=== PATIENT | female | born 1995 | race Caucasian/White ===

== ENCOUNTER 2019-11-19 17:13 | Emergency (ER) | payer OTHER, MEDICAID, SELFPAY ==
[2019-11-19] VITALS (9 sets, daily range): BP systolic 96–112; BP diastolic 64–82; PULSE 71–94; RESP 16–29; O2SAT 94–100
[2019-11-19 17:46] LABS: Add Manual Diff / Slide Review NO; Basophils Absolute Auto 100 /uL (0-100); Basophils Percent Auto 0.6 % (0-2); Eosinophils Absolute Auto 300 /uL (0-450); Eosinophils Percent Auto 3.1 % (2-4); Hematocrit 38.2 % (36-46); Hemoglobin 13.2 g/dL (12.0-16.0); Lymphocytes Absolute Auto 2600 /uL (1100-4500); Lymphocytes Percent Auto 31.5 % (25-40); Mean Corpuscular HGB Conc 34.5 % (30-36); Mean Corpuscular Hemoglobin 32.3 PG (26-34); Mean Corpuscular Volume 93.5 fL (80-100); Monocytes Absolute Auto 600 /uL (0-900); Monocytes Percent Auto 7.6 % (3-14); Neutrophils Absolute Auto 4600 /uL (1500-7000); Neutrophils Percent Auto 57.2 % (50-75); Platelet Count 273 X10^3/uL (150-400); Red Blood Cell Count 4.09 X10^6/uL (4.0-5.2); Red Cell Distribution Width 12.6 % (11.6-14.8); White Blood Cell Count 8.1 X10^3/uL (4.5-11.0)
[2019-11-19 17:55] LABS: HEMOLYSIS < 15 (0-50); Potassium 3.9 mmol/L (3.4-5.1)
[2019-11-19 17:56] LABS: Alanine Aminotransferase 42 IU/L (<35); Albumin 4.3 g/dL (3.5-5.0); Albumin Globulin Ratio 1.4 (1.0-2.8); Alkaline Phosphatase 62 U/L (38-126); Aspartate Aminotransferase 43 IU/L (14-36); BUN Creatinine Ratio 20.3 (6-22); Bilirubin Total 0.7 mg/dL (0.2-1.3); Blood Urea Nitrogen 12 mg/dL (7-17); Calcium 9.1 mg/dL (8.4-10.2); Carbon Dioxide 22 mmol/L (22-32); Chloride 104 mmol/L (98-107); Estimated Glomerular Filt Rate > 60.0 mL/min (>60); Glucose 84 mg/dL (70-100); Sodium 136 mmol/L (137-145); Total Protein 7.3 g/dL (6.3-8.2)
--- NOTE | 2019-11-19 18:00 | DI.RAD.S_ITS ---
PROCEDURE: XR CHEST 2V INDICATIONS: sob, cough TECHNIQUE: 2 views of the chest were acquired. COMPARISON: None. FINDINGS: Surgical changes and devices: None. Lungs and pleura: Lungs are clear. No pleural effusions or pneumothorax. Mediastinum: Mediastinal contours are normal. Heart size is normal. Bones and chest wall: No suspicious bony abnormalities. Soft tissues appear unremarkable. IMPRESSION: Light film technique, no pneumonia found. Dictated by: Rakesh Payne M.D. on 11/19/2019 at 18:43 Approved by: Rakesh Payne M.D. on 11/19/2019 at 18:43
--- NOTE | 2019-11-19 18:01 | DI.US.S_ITS ---
PROCEDURE: US PELVIC COMPLETE INDICATIONS: RECENT D C; PAIN TECHNIQUE: Real-time scanning was performed of the pelvic organs, with image documentation. Additional endovaginal scanning was necessary due to incomplete visualization of the adnexal and endometrial structures by transabdominal scanning. COMPARISON: None. FINDINGS: Transabdominal scanning: Limited scanning through the kidneys shows no hydronephrosis. No pathologic free abdominal or pelvic fluid. Endovaginal scanning: Uterus: Uterus is normal in size at 5.4 x 6.7 x 8.4 cm. The endometrium measures 11.4 mm in combined thickness, heterogeneous, with an IUD in central position. The heterogeneity may reflect blood clot or retained products of conception.. Ovaries: Right and left ovaries normal, no sign of ovarian torsion. IMPRESSION: Possible retained products of conception as cause of heterogeneous material within the endometrial space, versus blood clots. IUD centrally positioned. Dictated by: Rakesh Payne M.D. on 11/19/2019 at 20:32 Approved by: Rakesh Payne M.D. on 11/19/2019 at 20:34
[2019-11-19] MEDS: ALBUTEROL HFA 200 PUFF/18 GM INH (COVID POS/VENT PTS) INH (18:08)
--- NOTE | 2019-11-19 18:26 | ED.SOB ---
HPI - SOB/Dyspnea <RADHA Gan - Last Filed: 11/19/19 21:18> General Chief Complaint: Shortness of Breath/Dyspnea Stated Complaint: shortness of breath, pain Time Seen by Provider: 11/19/19 17:32 Source: patient Mode of arrival: Ambulatory Limitations: no limitations History of Present Illness HPI Narrative: The patient is a 23-year-old female nonsmoker with history of recent D&C for elective termination last who presents with a chief complaint of progressive shortness of breath, dry cough, difficulty breathing since her procedure last . She denies any fevers nausea vomiting or diarrhea. She does complain of worsening pelvic pain and cramping and bleeding. She has not taken anything to feel better. She is concerned about coronavirus. She states that she feels as though her chest is very ?tight. Had difficulty running the day after her elective termination. She denies any dysuria urgency or frequency. Denies any history of respiratory disease such as asthma. Patient has been drinking today per nursing. The patient states she feels as though her hormones are fluctuating a lot, denies any thoughts of hurting herself or anybody Related Data Home Medications Medication Instructions Recorded Confirmed bupropion HCl 75 mg PO DAILY 11/19/19 11/19/19 dextroamphetamine-amphetamine 30 mg PO QAM 11/19/19 11/19/19 naltrexone 50 mg PO DAILY 11/19/19 11/19/19 naproxen 500 mg PO BID 11/19/19 11/19/19 Previous Rx's Medication Instructions Recorded hydroxyzine HCl 50 mg PO TID PRN #10 tab 11/19/19 Allergies Allergy/AdvReac Type Severity Reaction Status Date / Time amoxicillin Allergy Unknown Verified 11/19/19 18:51 Review of Systems <RADHA Gan - Last Filed: 11/19/19 21:18> Review of Systems Narrative: GENERAL: Denies chills, fatigue, malaise, fever, sweats. HEENT: Denies sinus pain, ear pain, sore throat, difficulty swallowing, dizziness. RESPIRATORY: See HPI CARDIOVASCULAR: Denies chest pain, palpitations, orthopnea, edema, GASTROINTESTINAL: Denies nausea, vomiting, abdominal pain, diarrhea, constipation, melena. : See HPI MUSCULOSKELETAL: denies weakness, joint pain, or bony pain SKIN: Denies rash, skin lesions, or other NEUROLOGIC: Denies weakness, headache, numbness, change in speech, confusion, seizures, incoordination. PSYCHIATRIC: No concerning psychosocial issues. 12 point review of systems is negative except for those stated above Patient History <Syeda ANA Benoit- - Last Filed: 11/19/19 21:18> Social History Smoking Status: Never smoker Smoking Status: Never smoker alcohol intake frequency: 0-2 drinks per day Substance Use Type: does not use Exam <Syeda ANA Benoit- - Last Filed: 11/19/19 21:18> Narrative Exam Narrative: GENERAL: This is a well-nourished, well-developed patient, appears uncomfortable HEAD: Atraumatic. Normocephalic. No temporal or scalp tenderness. EYES: Pupils equal round and reactive. Extraocular motions intact. No scleral icterus. No injection or drainage. ENT: Nose without bleeding, purulent drainage or septal hematoma. Throat without erythema, tonsillar hypertrophy or exudate. Uvula midline. Airway patent. NECK: Trachea midline. No JVD or lymphadenopathy. Supple, nontender, no meningeal signs. CARDIOVASCULAR: Regular rate and rhythm RESPIRATORY: Clear to auscultation. Breath sounds equal bilaterally. No wheezes, rales, or rhonchi. Tachypneic. No cough on exam. Speaking full sentences. GASTROINTESTINAL: Abdomen soft, diffuse suprapubic tenderness to palpation, nondistended. No hepato-splenomegaly, or palpable masses. No guarding. Active bowel sounds. EXTREMITIES: No clubbing, cyanosis, or edema. No joint tenderness, effusion, or edema noted. BACK: Nontender without deformity or crepitance. No flank tenderness. NEURO: AOx3. SKIN: No rash or erythema on visible skin Initial Vital Signs Initial Vital Signs: Vital Signs Pulse Rate 94 H 11/19/19 17:15 Respiratory Rate 18 11/19/19 17:15 Blood Pressure 112/82 11/19/19 17:15 Pulse Oximetry 94 11/19/19 17:15 <Barry Munoz DO - Last Filed: 11/19/19 21:22> Initial Vital Signs Initial Vital Signs: Vital Signs Pulse Rate 94 H 11/19/19 17:15 Respiratory Rate 18 11/19/19 17:15 Blood Pressure 112/82 11/19/19 17:15 Pulse Oximetry 94 11/19/19 17:15 Scores <Syeda RADHA Benoit - Last Filed: 11/19/19 21:18> GCS Hung coma scale eye opening: Spontaneous Hung coma scale verbal response: Orientated [place] coma scale motor response: Obey commands Hung coma scale total score: 15 Course <Syeda MccormackJAMES lucioBC - Last Filed: 11/19/19 21:18> Orders Ordered: ED Orders 11/19/19 17:38 Complete Blood Count AUTO DIFF Stat Comprehensive Metabolic Panel Stat Ethanol (ETOH) Stat Lactate (Lactic Acid) Stat Test Serum,Qual Stat 11/19/19 17:42 EKG-12 Lead Stat 11/19/19 18:00 XR chest 2V Stat 11/19/19 18:01 US pelvic complete Stat 11/19/19 19:04 CT angio chest PE protocol Stat Discontinued Medications Albuterol (Ventolin Hfa (Vent/Covid R/O)) 2 puff INH NOW ONE Stop: 11/19/19 18:05 Last Admin: 11/19/19 18:08 Dose: 2 puff Documented by: DIYA Hydroxyzine Pamoate (Vistaril) 50 mg PO NOW ONE Stop: 11/19/19 21:03 Last Admin: 11/19/19 21:05 Dose: 50 mg Documented by: CECIL Sodium Chloride (Normal Saline 0.9%) 1,000 mls @ 1,000 mls/hr IV BOLUS ONE Stop: 11/19/19 20:03 Last Infusion: 11/19/19 20:33 Dose: 1,000 mls/hr Documented by: Admin: 11/19/19 19:32 Dose: 1,000 mls/hr Documented by: EL Reevaluation(s) Reevaluation #1: Discussed with patient desire to do CT angio to evaluate for PE as she presented hypoxic, tachycardic for her, dyspnea. However patient still test positive for given her recent D&C. Discussed that we generally avoid CT scans and people for , though the patient elected to terminate last week. Patient states that she is okay would like to proceed with CT angio as she still feels short of breath. Time: 19:19 Vital Signs Vital signs: Vital Signs - 8 hr 11/19/19 17:15 11/19/19 17:46 11/19/19 17:56 Pulse Rate 94 H 84 87 Respiratory Rate 18 29 H Blood Pressure 112/82 Pulse Oximetry 94 98 99 11/19/19 18:00 11/19/19 18:30 11/19/19 19:00 Pulse Rate 83 92 H 92 H Respiratory Rate 23 24 26 H Blood Pressure Pulse Oximetry 97 98 98 11/19/19 19:30 11/19/19 20:00 11/19/19 21:18 Pulse Rate 86 87 71 Respiratory Rate 23 26 H 16 Blood Pressure 96/64 Pulse Oximetry 100 98 99 <Barry Alexander, DO - Last Filed: 11/19/19 21:22> Orders Ordered: ED Orders 11/19/19 17:38 Complete Blood Count AUTO DIFF Stat Comprehensive Metabolic Panel Stat Ethanol (ETOH) Stat Lactate (Lactic Acid) Stat Test Serum,Qual Stat 11/19/19 17:42 EKG-12 Lead Stat 11/19/19 18:00 XR chest 2V Stat 11/19/19 18:01 US pelvic complete Stat 11/19/19 19:04 CT angio chest PE protocol Stat Discontinued Medications Albuterol (Ventolin Hfa (Vent/Covid R/O)) 2 puff INH NOW ONE Stop: 11/19/19 18:05 Last Admin: 11/19/19 18:08 Dose: 2 puff Documented by: DIYA Hydroxyzine Pamoate (Vistaril) 50 mg PO NOW ONE Stop: 11/19/19 21:03 Last Admin: 11/19/19 21:05 Dose: 50 mg Documented by: CECIL Sodium Chloride (Normal Saline 0.9%) 1,000 mls @ 1,000 mls/hr IV BOLUS ONE Stop: 11/19/19 20:03 Last Infusion: 11/19/19 20:33 Dose: 1,000 mls/hr Documented by: Admin: 11/19/19 19:32 Dose: 1,000 mls/hr Documented by: EL Vital Signs Vital signs: Vital Signs - 8 hr 11/19/19 17:15 11/19/19 17:46 11/19/19 17:56 Pulse Rate 94 H 84 87 Respiratory Rate 18 29 H Blood Pressure 112/82 Pulse Oximetry 94 98 99 11/19/19 18:00 11/19/19 18:30 11/19/19 19:00 Pulse Rate 83 92 H 92 H Respiratory Rate 23 24 26 H Blood Pressure Pulse Oximetry 97 98 98 11/19/19 19:30 11/19/19 20:00 11/19/19 21:18 Pulse Rate 86 87 71 Respiratory Rate 23 26 H 16 Blood Pressure 96/64 Pulse Oximetry 100 98 99 MDM - SOB/Dyspnea <ANA Gan-BC - Last Filed: 11/19/19 21:18> Lab Data Result diagrams: 11/19/19 17:38 11/19/19 17:38 Labs: Lab Results 11/19/19 11/19/19 11/19/19 Range/Units 17:38 17:38 17:38 WBC 8.1 (4.5-11.0) X10^3/uL RBC 4.09 (4.0-5.2) X10^6/uL Hgb 13.2 (12.0-16.0) g/dL Hct 38.2 (36-46) % MCV 93.5 (80-100) fL MCH 32.3 (26-34) PG MCHC 34.5 (30-36) % RDW 12.6 (11.6-14.8) % Plt Count 273 (150-400) X10^3/uL Neut % (Auto) 57.2 (50-75) % Lymph % (Auto) 31.5 (25-40) % [place] % (Auto) 7.6 (3-14) % Eos % (Auto) 3.1 (2-4) % Baso % (Auto) 0.6 (0-2) % Neut # (Auto) 4600 (1591-9908) /uL Lymph # (Auto) 2600 (6221-7854) /uL [place] # (Auto) 600 (0-900) /uL Eos # (Auto) 300 (0-450) /uL Baso # (Auto) 100 (0-100) /uL Sodium 136 L (137-145) mmol/L Potassium 3.9 (3.4-5.1) mmol/L Chloride 104 (98-107) mmol/L Carbon Dioxide 22 (22-32) mmol/L BUN 12 (7-17) mg/dL Creatinine 0.59 (0.52-1.04) mg/dL Estimated GFR > 60.0 (>60) mL/min BUN/Creatinine Ratio 20.3 (6-22) Glucose 84 (70-100) mg/dL Lactate 1.0 (0.7-2.1) mmol/L Calcium 9.1 (8.4-10.2) mg/dL Total Bilirubin 0.7 (0.2-1.3) mg/dL AST 43 H (14-36) IU/L ALT 42 H (<35) IU/L Alkaline Phosphatase 62 (38-126) U/L Total Protein 7.3 (6.3-8.2) g/dL Albumin 4.3 (3.5-5.0) g/dL Globulin 3.0 (1.7-4.1) g/dL Albumin/Globulin Ratio 1.4 (1.0-2.8) Serum , Qual (Negative) Ethyl Alcohol ( - 10) mg/dL COVID-19 PCR (Negative) 11/19/19 11/19/19 11/19/19 Range/Units 17:38 17:38 17:58 WBC (4.5-11.0) X10^3/uL RBC (4.0-5.2) X10^6/uL Hgb (12.0-16.0) g/dL Hct (36-46) % MCV (80-100) fL MCH (26-34) PG MCHC (30-36) % RDW (11.6-14.8) % Plt Count (150-400) X10^3/uL Neut % (Auto) (50-75) % Lymph % (Auto) (25-40) % [place] % (Auto) (3-14) % Eos % (Auto) (2-4) % Baso % (Auto) (0-2) % Neut # (Auto) (2281-6278) /uL Lymph # (Auto) (5233-9521) /uL [place] # (Auto) (0-900) /uL Eos # (Auto) (0-450) /uL Baso # (Auto) (0-100) /uL Sodium (137-145) mmol/L Potassium (3.4-5.1) mmol/L Chloride (98-107) mmol/L Carbon Dioxide (22-32) mmol/L BUN (7-17) mg/dL Creatinine (0.52-1.04) mg/dL Estimated GFR (>60) mL/min BUN/Creatinine Ratio (6-22) Glucose (70-100) mg/dL Lactate (0.7-2.1) mmol/L Calcium (8.4-10.2) mg/dL Total Bilirubin (0.2-1.3) mg/dL AST (14-36) IU/L ALT (<35) IU/L Alkaline Phosphatase (38-126) U/L Total Protein (6.3-8.2) g/dL Albumin (3.5-5.0) g/dL Globulin (1.7-4.1) g/dL Albumin/Globulin Ratio (1.0-2.8) Serum , Qual Positive H (Negative) Ethyl Alcohol 87 H ( - 10) mg/dL COVID-19 PCR Negative (Negative) Point of Care Testing Test Results Positive Urine Dip Bedside Urine Glucose Negative Bedside Urine Bilirubin - Negative Bedside Urine Ketone - Negative Urine Specific Hundred 1.010 Bedside Urine Occult Blood +++ Bedside Urine pH 6.0 Bedside Urine Protein - Negative Bedside Urine Urobilinogen - Negative Bedside Urine Nitrite - Negative Bedside Urine Leukocytes - Negative Esterase Imaging Data Chest x-ray: Radiologist's Impression: [address] [place] [id number] XRay Report Signed Patient: Rae Lobato EMR#: [id number] : 1995Acct:[id number] Age/Sex: 23 / FDate of Service: 11/19/19 Loc: ED Accession Number: [id number] Procedure: XR chest 2V Ordering Provider: Syeda Benoit- PROCEDURE: XR CHEST 2V INDICATIONS: sob, cough TECHNIQUE: 2 views of the chest were acquired. COMPARISON: None. FINDINGS: Surgical changes and devices: None. Lungs and pleura: Lungs are clear. No pleural effusions or pneumothorax. Mediastinum: Mediastinal contours are normal. Heart size is normal. Bones and chest wall: No suspicious bony abnormalities. Soft tissues appear unremarkable. IMPRESSION: Light film technique, no pneumonia found. Dictated by: Rakesh Payne M.D. on 11/19/2019 at 18:43 Approved by: Rakesh Payne M.D. on 11/19/2019 at 18:43 CT scan - chest: Radiologist's Impression: [address] [place] [id number] Scan Report Signed Patient: Rae Lobato EMR#: [id number] : 1995Acct:[id number] Age/Sex: 23 / FDate of Service: 11/19/19 Loc: ED Accession Number: [id number] Procedure: CT angio chest PE protocol [facility] CT [facility]GIO CHEST PE PROTOCOL INDICATIONS: SHORTNESS OF BREATH TECHNIQUE: After the administration of intravenous contrast, 2 mm thick sections acquired from the pulmonary apices to the posterior costophrenic angles. 3-dimensional maximum intensity projection (MIP) coronal and sagittal reformats were then acquired through the thorax. For radiation dose reduction, the following was used: automated exposure control, adjustment of mA and/or kV according to patient size. COMPARISON: [facility], , XR CHEST 2V, 11/19/2019, 18:04. FINDINGS: Image quality: Excellent. Pulmonary arteries: Pulmonary arteries are normal in size, and demonstrate no intraluminal filling defects to suggest central pulmonary embolism. Lungs and pleura: Lungs are clear. No pleural effusions or pneumothorax. Central and peripheral airways are patent. Mediastinum: Heart size is normal, without pericardial effusion. No mediastinal or hilar adenopathy. Thoracic aorta is normal in caliber and enhancement. Esophagus is normal in caliber, without hiatal hernia. Bones and chest wall: No suspicious bony lesions. Ribs and thoracic spine appear intact throughout. Thyroid gland appears normal where well seen . No axillary or supraclavicular adenopathy. Abdomen: Visualized upper abdominal solid organs appear normal in the early arterial phase of enhancement. IMPRESSION: No pulmonary embolus found, no sign of pulmonary edema. Source of current shortness of breath is not found. Dictated by: Rakesh Payne M.D. on 11/19/2019 at 19:53 Approved by: Rakesh Payne M.D. on 11/19/2019 at 19:55 US - OB: Radiologist's Impression: [address] [place] [phone] Ultrasound Report Signed Patient: Rae Lobato EMR#: [id number] : 1995Acct:[id number] Age/Sex: 23 / FDate of Service: 11/19/19 Loc: ED Accession Number: [id number] Procedure: US pelvic complete Ordering Provider: Syeda Benoit PROCEDURE: US PELVIC COMPLETE INDICATIONS: RECENT D C; PAIN TECHNIQUE: Real-time scanning was performed of the pelvic organs, with image documentation. Additional endovaginal scanning was necessary due to incomplete visualization of the adnexal and endometrial structures by transabdominal scanning. COMPARISON: None. FINDINGS: Transabdominal scanning: Limited scanning through the kidneys shows no hydronephrosis. No pathologic free abdominal or pelvic fluid. Endovaginal scanning: Uterus: Uterus is normal in size at 5.4 x 6.7 x 8.4 cm. The endometrium measures 11.4 mm in combined thickness, heterogeneous, with an IUD in central position. The heterogeneity may reflect blood clot or retained products of conception.. Ovaries: Right and left ovaries normal, no sign of ovarian torsion. IMPRESSION: Possible retained products of conception as cause of heterogeneous material within the endometrial space, versus blood clots. IUD centrally positioned. Dictated by: Rakesh Payne M.D. on 11/19/2019 at 20:32 Approved by: Rakesh Payne M.D. on 11/19/2019 at 20:34 ECG Data Attestation: I personally reviewed and interpreted this ECG as follows: Interpretation: Sinus rhythm. Ventricular 85. P.r. interval 142. QRS 76. seen by Dr Alexander GILMORE Narrative Medical decision making narrative: The patient is a 23-year-old female who presents with multiple medical complaints including shortness of breath with exertion, dyspnea, pelvic cramping and increased bleeding after D and C for elective termination at 10 weeks. This was done on . Given the patient's tachypnea, respiratory complaints, we obtained a CT to rule out pulmonary embolism as the patient's heart rate was tachycardic for her. This came back negative. Chest x-ray has no signs of pneumonia. Her lung sounds are clear in overall exam is benign. Given her pelvic complaints, ultrasound was taken which showed slightly thickened endometrium. This was concerning for clot versus possible retained products. Spoke with Dr. peraza, on-call for OBGYN who states that she has not personally concerned about retained products at this point as she is afebrile no leukocytosis, not very thick and me tram. Encouraged follow-up with her or another OBGYN provider. The patient then states she thinks that her complaints might be related to anxiety and requested ?some Valium or something.I offered her hydroxyzine, which she was willing to take. The patient has a primary care provider appointment tomorrow, which I encouraged her to keep. Discussed coming back to the ER for any acute concerns as well as monitoring for fever etcetera. Patient also tested negative for coronavirus today. She has been hemodynamically stable throughout her stay in the emergency department. Patient has no questions or concerns upon discharge and states understanding of return precautions as well as follow-up care. <Barry Munoz, DO - Last Filed: 11/19/19 21:22> Lab Data Labs: Lab Results 11/19/19 11/19/19 11/19/19 Range/Units 17:38 17:38 17:38 WBC 8.1 (4.5-11.0) X10^3/uL RBC 4.09 (4.0-5.2) X10^6/uL Hgb 13.2 (12.0-16.0) g/dL Hct 38.2 (36-46) % MCV 93.5 (80-100) fL MCH 32.3 (26-34) PG MCHC 34.5 (30-36) % RDW 12.6 (11.6-14.8) % Plt Count 273 (150-400) X10^3/uL Neut % (Auto) 57.2 (50-75) % Lymph % (Auto) 31.5 (25-40) % [place] % (Auto) 7.6 (3-14) % Eos % (Auto) 3.1 (2-4) % Baso % (Auto) 0.6 (0-2) % Neut # (Auto) 4600 (1320-9850) /uL Lymph # (Auto) 2600 (7101-8405) /uL [place] # (Auto) 600 (0-900) /uL Eos # (Auto) 300 (0-450) /uL Baso # (Auto) 100 (0-100) /uL Sodium 136 L (137-145) mmol/L Potassium 3.9 (3.4-5.1) mmol/L Chloride 104 (98-107) mmol/L Carbon Dioxide 22 (22-32) mmol/L BUN 12 (7-17) mg/dL Creatinine 0.59 (0.52-1.04) mg/dL Estimated GFR > 60.0 (>60) mL/min BUN/Creatinine Ratio 20.3 (6-22) Glucose 84 (70-100) mg/dL Lactate 1.0 (0.7-2.1) mmol/L Calcium 9.1 (8.4-10.2) mg/dL Total Bilirubin 0.7 (0.2-1.3) mg/dL AST 43 H (14-36) IU/L ALT 42 H (<35) IU/L Alkaline Phosphatase 62 (38-126) U/L Total Protein 7.3 (6.3-8.2) g/dL Albumin 4.3 (3.5-5.0) g/dL Globulin 3.0 (1.7-4.1) g/dL Albumin/Globulin Ratio 1.4 (1.0-2.8) Serum , Qual (Negative) Ethyl Alcohol ( - 10) mg/dL COVID-19 PCR (Negative) 11/19/19 11/19/19 11/19/19 Range/Units 17:38 17:38 17:58 WBC (4.5-11.0) X10^3/uL RBC (4.0-5.2) X10^6/uL Hgb (12.0-16.0) g/dL Hct (36-46) % MCV (80-100) fL MCH (26-34) PG MCHC (30-36) % RDW (11.6-14.8) % Plt Count (150-400) X10^3/uL Neut % (Auto) (50-75) % Lymph % (Auto) (25-40) % [place] % (Auto) (3-14) % Eos % (Auto) (2-4) % Baso % (Auto) (0-2) % Neut # (Auto) (4974-5897) /uL Lymph # (Auto) (4983-8117) /uL [place] # (Auto) (0-900) /uL Eos # (Auto) (0-450) /uL Baso # (Auto) (0-100) /uL Sodium (137-145) mmol/L Potassium (3.4-5.1) mmol/L Chloride (98-107) mmol/L Carbon Dioxide (22-32) mmol/L BUN (7-17) mg/dL Creatinine (0.52-1.04) mg/dL Estimated GFR (>60) mL/min BUN/Creatinine Ratio (6-22) Glucose (70-100) mg/dL Lactate (0.7-2.1) mmol/L Calcium (8.4-10.2) mg/dL Total Bilirubin (0.2-1.3) mg/dL AST (14-36) IU/L ALT (<35) IU/L Alkaline Phosphatase (38-126) U/L Total Protein (6.3-8.2) g/dL Albumin (3.5-5.0) g/dL Globulin (1.7-4.1) g/dL Albumin/Globulin Ratio (1.0-2.8) Serum , Qual Positive H (Negative) Ethyl Alcohol 87 H ( - 10) mg/dL COVID-19 PCR Negative (Negative) Point of Care Testing Test Results Positive Urine Dip Bedside Urine Glucose Negative Bedside Urine Bilirubin - Negative Bedside Urine Ketone - Negative Urine Specific Hundred 1.010 Bedside Urine Occult Blood +++ Bedside Urine pH 6.0 Bedside Urine Protein - Negative Bedside Urine Urobilinogen - Negative Bedside Urine Nitrite - Negative Bedside Urine Leukocytes - Negative Esterase Discharge Plan Departure Patient Disposition: Home Clinical Impression: Shortness of breath, Pelvic cramping Discharge Date/Time: 11/19/19 21:18 Instructions: DI for Abdominal Pain-Adult, DI for Shortness of Breath Activity Restrictions/Additional Instructions: Thank you for trusting us with your care today. Today your chest x-ray shows no signs of pneumonia, your chest CT scan shows no sign of blood clot or abnormality in your lungs, your pelvic ultrasound is relatively within normal limits with procedure you just had I spoke with Dr. peraza, from OBGYN who thinks that you should take some ibuprofen or Motrin to help with the cramping and follow-up with an OBGYN. She is willing to follow up with you if you do not have anybody else. I have included her contact information below. Please monitor for fever as this can be a sign of infection in the uterus. Please rest, push non alcoholic fluids, and follow up with primary care provider. Please come back to the emergency department for any acute concerns. I sent a prescription of hydroxyzine to [facility] in [place]. Do not combine this with Benadryl. Please be aware that it can be sedating. Prescriptions: New hydroxyzine HCl 50 mg tablet 50 mg PO TID PRN (Reason: anxiety) Qty: 10 RF: 0 No Action naltrexone 50 mg tablet 50 mg PO DAILY RF: 0 bupropion HCl 75 mg tablet 75 mg PO DAILY RF: 0 dextroamphetamine-amphetamine 30 mg capsule,extended release 24hr 30 mg PO QAM RF: 0 naproxen 500 mg tablet 500 mg PO BID RF: 0 Referrals: Marily Peraza MD [Physician] - Jessica Lozada MD [Primary Care Provider] - Stand Alone Forms: Work Release Note <Barry Munoz DO - Last Filed: 11/19/19 21:22> [facility]ign [facility] Attestation: Dr Munoz Co-Sign Statement: I was available for consultation during this patient's emergency department visit. This chart is signed by myself for administrative purposes only. I did not have direct contact with this patient during this visit. They were seen independently by the APC.
--- NOTE | 2019-11-19 19:04 | DI.CT.S_ITS ---
PROCEDURE: CT ANGIO CHEST PE PROTOCOL INDICATIONS: SHORTNESS OF BREATH TECHNIQUE: After the administration of intravenous contrast, 2 mm thick sections acquired from the pulmonary apices to the posterior costophrenic angles. 3-dimensional maximum intensity projection (MIP) coronal and sagittal reformats were then acquired through the thorax. For radiation dose reduction, the following was used: automated exposure control, adjustment of mA and/or kV according to patient size. COMPARISON: [facility], CR, XR CHEST 2V, 11/19/2019, 18:04. FINDINGS: Image quality: Excellent. Pulmonary arteries: Pulmonary arteries are normal in size, and demonstrate no intraluminal filling defects to suggest central pulmonary embolism. Lungs and pleura: Lungs are clear. No pleural effusions or pneumothorax. Central and peripheral airways are patent. Mediastinum: Heart size is normal, without pericardial effusion. No mediastinal or hilar adenopathy. Thoracic aorta is normal in caliber and enhancement. Esophagus is normal in caliber, without hiatal hernia. Bones and chest wall: No suspicious bony lesions. Ribs and thoracic spine appear intact throughout. Thyroid gland appears normal where well seen . No axillary or supraclavicular adenopathy. Abdomen: Visualized upper abdominal solid organs appear normal in the early arterial phase of enhancement. IMPRESSION: No pulmonary embolus found, no sign of pulmonary edema. Source of current shortness of breath is not found. Dictated by: Rakesh Payne M.D. on 11/19/2019 at 19:53 Approved by: Rakesh Payne M.D. on 11/19/2019 at 19:55
[2019-11-19 19:05] LABS: Pregnancy Test Serum,Qual Positive (Negative)
[2019-11-19 19:07] LABS: Ethanol (ETOH) 87 mg/dL
[2019-11-19 19:26] LABS: COVID19 -Nasal RAPID Negative (Negative)
[2019-11-19] MEDS: SODIUM CHLORIDE 0.9% 1,000 ML 1000 ML IV (19:32)
[2019-11-19] MEDS: hydrOXYzine pamoate 25 MG CAPSULE 50 MG PO (21:05)
== END 2019-11-19 21:18 | disposition home or self-care (01) ==
PROVIDERS: Emergency Provider Nurse Practitioner Family; PCP Family Medicine
DX: R06.02 Shortness of breath (principal); R05 Cough; R10.2 Pelvic and perineal pain; R09.02 Hypoxemia; R00.0 Tachycardia, unspecified; Z87.59 Personal history of other complications of pregnancy, childbirth and the puerperium
CPT/HCPCS: 36415; 71046; 71275; 76830; 76856; 80053; 80320; 81003; 81025; 83605; 84703; 85025; 87635; 93005; 94640; 96360; 99284; 99285; A9270

== ENCOUNTER 2019-12-19 13:56 | Emergency (ER) | payer OTHER, MEDICAID, SELFPAY ==
[2019-12-19 14:09] VITALS: BP 132/99; PULSE 105; RESP 18; TEMP 36.9; O2SAT 100; BMI 23.9
[2019-12-19 14:38] LABS: Add Manual Diff / Slide Review NO; Basophils Absolute Auto 0 /uL (0-100); Basophils Percent Auto 0.6 % (0-2); Eosinophils Absolute Auto 300 /uL (0-450); Eosinophils Percent Auto 3.5 % (2-4); Hematocrit 40.1 % (36-46); Hemoglobin 13.7 g/dL (12.0-16.0); Lymphocytes Absolute Auto 2000 /uL (1100-4500); Lymphocytes Percent Auto 27.5 % (25-40); Mean Corpuscular HGB Conc 34.2 % (30-36); Mean Corpuscular Hemoglobin 32.2 PG (26-34); Monocytes Absolute Auto 500 /uL (0-900); Monocytes Percent Auto 6.5 % (3-14); Neutrophils Absolute Auto 4400 /uL (1500-7000); Neutrophils Percent Auto 61.9 % (50-75); Platelet Count 253 X10^3/uL (150-400); Red Blood Cell Count 4.27 X10^6/uL (4.0-5.2); Red Cell Distribution Width 13.1 % (11.6-14.8); White Blood Cell Count 7.2 X10^3/uL (4.5-11.0)
[2019-12-19 14:45] LABS: Bacteria Urine None Seen; RBC Urine None Seen (0-5/HPF)
[2019-12-19 14:51] LABS: UR Morphine/Opiate cutoff 300 Negative (Negative); Ur Creatinine Normal (Normal); Ur Specific Gravity Normal (Normal); Urine Amphetamines Positive (Negative); Urine Barbiturates Negative (Negative); Urine Benzodiazepines Negative (Negative); Urine Cocaine Negative (Negative); Urine MDMA Negative (Negative); Urine Methadone Negative (Negative); Urine Methamphetamines Negative (Negative); Urine Oxycodone Negative (Negative); Urine Phencyclidine Negative (Negative); Urine Tetrahydrocannabinol Negative (Negative); Urine Tricyclic Antidepressant Negative (Negative); Urine pH Normal (Normal)
[2019-12-19 15:03] LABS: Alanine Aminotransferase 29 IU/L (<35); Albumin 4.4 g/dL (3.5-5.0); Albumin Globulin Ratio 1.5 (1.0-2.8); Alkaline Phosphatase 59 U/L (38-126); Aspartate Aminotransferase 35 IU/L (14-36); Bilirubin Total 1.1 mg/dL (0.2-1.3); Blood Urea Nitrogen 11 mg/dL (7-17); Calcium 9.3 mg/dL (8.4-10.2); Carbon Dioxide 27 mmol/L (22-32); Chloride 104 mmol/L (98-107); Estimated Glomerular Filt Rate > 60.0 mL/min (>60); Ethanol (ETOH) < 10 mg/dL; Glucose 92 mg/dL (70-100); HEMOLYSIS < 15 (0-50); Potassium 3.7 mmol/L (3.4-5.1); Sodium 137 mmol/L (137-145); Total Protein 7.4 g/dL (6.3-8.2)
[2019-12-19 15:09] LABS: Acetaminophen < 10 ug/mL (10-30); Salicylate < 1.0 mg/dL (<20)
[2019-12-19 15:14] LABS: Amorphous Sediment Urine 1+; Culture Indicated Urine Cult Not Indicated; Squamous Epithelial Cell Urine 1-5 /HPF (0-5/HPF); WBC Urine 0-1/HPF (0-5/HPF)
[2019-12-19 15:36] LABS: Thyroid Stimulating Hormone 0.922 uIU/mL (0.47-4.68)
--- NOTE | 2019-12-19 15:51 | PC.NURSE ---
Osvaldo Magaña on Pt 1:1 @ 1545. TRUCK SALES REPRESENTATIVE in room speaking with Pt
--- NOTE | 2019-12-19 16:00 | PC.NURSE ---
Pt has friend @ bedside with her
[2019-12-19 16:05] VITALS: BP 106/63; PULSE 83; RESP 16; O2SAT 100
--- NOTE | 2019-12-19 16:32 | CM.SWNOTE ---
PROGRAM ATTENDANT Assessment PROGRAM ATTENDANT - Leg Man Assessment PROGRAM ATTENDANT - Leg Man Assessment Start: 12/19/19 16:02 Freq: Status: Active Protocol: Document 12/19/19 16:03 YUNIOR (Rec: 12/19/19 16:32 YUNIOR [id number]) PROGRAM ATTENDANT/Leg Man Assessment Time Spent with Patient Start date 12/19/19 Visit Start Time 15:00 End date 12/19/19 Visit End Time 15:55 Total time Care Management spent on 55 patient visit-in minutes Mental Health Screening Include Onset, Duration, Intensity Presenting Problem Patient presents to ED today stating she has not felt like herself lately. Patient report SI with plan and attempt previous evening, feeling spacey, having difficulty with memory, I forget to eat, and experiencing really low lows over the past two months. Precipitating Event(s) Patient had an elective in October,, and has limited immediate social support surrounding this. Patient explains that the response to in the media and in front of clinics has contributed to an additional feeling of shame. Patient was present when her next-door neighbor committed suicide by gun earlier in the year. Patient has since relocated due to the trauma of this experience. Patient's OBGYN started patient on Naltrexone and Welbutrin roughly 1.5 months prior to today's visit. Patient attempted suicide by overdose on Welbutrin previous evening. Patient Strengths Patient presents with many strengths. Patient is very open about her current experience, and has asked for support from a close friend. 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 Current Behavioral Health Provider(s) Patient sees Ej Cotto, [facility], Provider, Ph. # private counselor. Psych. Hx Mental Health and Chemical Patient has hx of depression, Dependency anxiety, ADHD, and SI. Patient reports she had been able to manage her depression and anxiety up until this point stating that the lows were not this low. Patient denies current substance use, but does endorse consuming 2-4 alcoholic beverages nightly since her . Patient states her parents both are alcoholics and she does not want to continue her alcohol intake. Family Hx of Behavioral Abuse None reported. Psychiatric Hospitalizations (date(s)/ Patient was involuntarily location) hospitalized in [place] in 2014 due to SI. Psychosocial information & Support Patient is a 23 y/o female who Systems lives with her two cats in an apartment. 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 Patient states she feels supported and respected by boyfriend, but that he doesn't get it. Patient reports other family support including grandparents. Patient presents to ED with friend, Yumiko, who appears supportive. Patient provides consent for Yumiko to be present during assessment. 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 Patient reports her current mental health concerns are impacting her work, reporting that she is forgetting to do things and crying in between classes. Patient reports that her boss has voiced concerns about her recent performance at work. Legal Concerns Legal Matters - Outstanding Issues None reported. Mental Status Orientation (Person/Place/Time) Oriented x3 Stated Mood sad Affect (Congruent with Mood?) Euthymic, slightly flat, stable, slightly inconsistent with mood. Thought Content - Specify/Describe No obsessions, hallucinations, Obsessions, Delusions, Hallucinations or delusions reported or observed during assessment. Thought Processes (Wblfdip-Sygvdtht-Pgfl Coherent Urmxmgky-Ojitjowt-Bddriqkqja- Xxvigntfmmklio-Lhwyhtk-Xhzvzczqcipg- Thought Blocking) Speech (Ddjemt-Dxst-Ozjupsq-Rapid-Soft- Slow Loud-Pressured) Motor (Yzpyrk-Xtqgtwfmi-Wbau-Other) Normal Insight (Ihxz-Hkrr-Adlz/Limited) Fair Judgement (Ggxy-Xxpz-Bmjb/Limited) Good-fair Impulse Control (Adequate-Impaired) Slight impairment Memory (Pgjerewek-Bjttak-Qihsdh, Immediate intact. Recent/ Impaired-Intact) remote impaired, onset of impairment October 2019. Concentration (Intact-Impaired) Impaired Attention (Intact-Impaired) Impaired Behavior (Appropriate-Inappropriate) Appropriate Risk Assessment Suicidal Ideation (Plan) Yes Homicidal Ideation (Plan) No Comment Patient denies SI. Patient attempted suicide by overdose previous evening, and endorses having a plan for suicide via overdose. Intervention Intervention PROGRAM ATTENDANT meets with patient and patient's friend Yumiko ( present with verbal consent of patient). Patient discusses recent traumas and feeling increasingly spacey, depressed, and suicidal. Patient reports these feelings started following starting a prescription of Naltrexone and Welbutrin prescribed by her OBGYN. Patient is hopeful to begin feeling more confident , having more energy, and feeling clearer. PROGRAM ATTENDANT and patient discuss next steps and options. Based on current presentation involving recent traumas and psychiatric complexities, it is the opinion of this PROGRAM ATTENDANT that patient receive inpatient behavioral health treatment. PROGRAM ATTENDANT discusses this with patient, who expresses agreement with plan to seek voluntary inpatient behavioral health hospitalization. Plan RA Plan PROGRAM ATTENDANT will look to secure inpatient behavioral health bed for patient. MATHIEU Parham
--- NOTE | 2019-12-19 16:51 | ED_ITS ---
HPI - Psych <RADHA Gan - Last Filed: 12/19/19 20:04> General Chief Complaint: Psychiatric Symptoms Stated Complaint: SI, and medication issues Time Seen by Provider: 12/19/19 14:02 Source: patient Mode of arrival: Ambulatory Limitations: no limitations History of Present Illness HPI Narrative: The patient is a 23-year-old female with history of depression and alcohol problems who presents with a chief complaint of not feeling like herself lately. She states that she has had suicidal ideations and had the took 4 tablets of her Wellbutrin a yesterday as a suicidal gesture. She states she feels spacey, is having trouble with her thoughts, states as though she cannot keep her thoughts straight. She states she is having trouble at work, trouble remembering to eat, trouble remembering to take her medications appropriately. She states that she feels really low lately, does not want to hurt herself or anybody else but does feel hopeless. 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 The patient states that her OBGYN has been managing her naltrexone and her Wellbutrin. She has noticed that she is drinking more, which caused her OBGYN to increase her dose of naltrexone, which was several weeks ago. She denies any hallucinations. She denies any thoughts of hurting herself or anybody else. She states that she is drinking a few drinks every night. Does have a significant history of depression anxiety ADHD and suicide ideations. She states that she has been inpatient before, and feels as though she needs help at this point again. Related Data Home Medications Medication Instructions Recorded Confirmed bupropion HCl 75 mg PO DAILY 11/19/19 11/19/19 dextroamphetamine-amphetamine 30 mg PO QAM 11/19/19 11/19/19 naltrexone 50 mg PO DAILY 11/19/19 11/19/19 naproxen 500 mg PO BID 11/19/19 11/19/19 Previous Rx's Medication Instructions Recorded hydroxyzine HCl 50 mg PO TID PRN #10 tab 11/19/19 Allergies Allergy/AdvReac Type Severity Reaction Status Date / Time amoxicillin Allergy Unknown Verified 11/19/19 18:51 Review of Systems <RADHA Gan - Last Filed: 12/19/19 20:04> Review of Systems Narrative: GENERAL: Denies chills, fatigue, malaise, fever, sweats. HEENT: Denies sinus pain, ear pain, sore throat, difficulty swallowing, dizziness. RESPIRATORY: Denies dyspnea, cough, wheezing, hemoptysis, sputum. CARDIOVASCULAR: Denies chest pain, palpitations, orthopnea, edema, GASTROINTESTINAL: Denies nausea, vomiting, abdominal pain, diarrhea, constipation, melena. : Denies dysuria, frequency, incontinence, hematuria, urinary retention. MUSCULOSKELETAL: denies weakness, joint pain, or bony pain SKIN: Denies rash, skin lesions, or other NEUROLOGIC: Denies weakness, headache, numbness, change in speech, confusion, seizures, incoordination. PSYCHIATRIC: See HPI 12 point review of systems is negative except for those stated above Patient History <Syeda Kaycee [facility] - Last Filed: 12/19/19 20:04> Social History Smoking Status: Never smoker Smoking Status: Never smoker alcohol intake frequency: 0-2 drinks per day Substance Use Type: does not use Exam <Syeda Benoit [facility] - Last Filed: 12/19/19 20:04> Narrative Exam Narrative: GENERAL: This is a well-nourished, well-developed patient, teary at times HEAD: Atraumatic. Normocephalic. No temporal or scalp tenderness. EYES: Pupils equal round and reactive. Extraocular motions intact. No scleral icterus. No injection or drainage. ENT: Nose without bleeding, purulent drainage or septal hematoma. Throat without erythema, tonsillar hypertrophy or exudate. Uvula midline. Airway patent. NECK: Trachea midline. No JVD or lymphadenopathy. Supple, nontender, no meningeal signs. CARDIOVASCULAR: Regular rate and rhythm RESPIRATORY: Clear to auscultation. Breath sounds equal bilaterally. No wheezes, rales, or rhonchi. No cough. No increased respiratory effort. No accessory muscle use. GASTROINTESTINAL: Abdomen soft, non-tender, nondistended. No hepato- splenomegaly, or palpable masses. No guarding. EXTREMITIES: No clubbing, cyanosis, or edema. No joint tenderness, effusion, or edema noted. BACK: Nontender without deformity or crepitance. No flank tenderness. NEURO: AOx3. Interactive. Age appropriate. SKIN: No rash or erythema on visible skin. Initial Vital Signs Initial Vital Signs: Vital Signs Temperature 98.5 F 12/19/19 14:09 Pulse Rate 105 H 12/19/19 14:09 Respiratory Rate 18 12/19/19 14:09 Blood Pressure 132/99 H 12/19/19 14:09 Pulse Oximetry 100 12/19/19 14:09 <Nelida Barillas MD - Last Filed: 12/20/19 10:24> Initial Vital Signs Initial Vital Signs: Vital Signs Temperature 98.5 F 12/19/19 14:09 Pulse Rate 105 H 12/19/19 14:09 Respiratory Rate 18 12/19/19 14:09 Blood Pressure 132/99 H 12/19/19 14:09 Pulse Oximetry 100 12/19/19 14:09 Course <RADHA Gan - Last Filed: 12/19/19 20:04> Orders Ordered: Discontinued Medications Lorazepam (Ativan) 0.5 mg PO NOW ONE Stop: 12/19/19 17:37 Last Admin: 12/19/19 17:42 Dose: 0.5 mg Documented by: SUHAS Vital Signs Vital signs: Vital Signs - 8 hr 12/19/19 14:09 12/19/19 16:05 12/19/19 18:36 Temperature 98.5 F Pulse Rate 105 H 83 93 H Respiratory Rate 18 16 18 Blood Pressure 132/99 H 106/63 108/68 Pulse Oximetry 100 100 100 <Nelida Barillas MD - Last Filed: 12/20/19 10:24> Orders Ordered: Discontinued Medications Lorazepam (Ativan) 0.5 mg PO NOW ONE Stop: 12/19/19 17:37 Last Admin: 12/19/19 17:42 Dose: 0.5 mg Documented by: SUHAS Vital Signs Vital signs: Vital Signs - 8 hr 12/19/19 14:09 12/19/19 16:05 12/19/19 18:36 Temperature 98.5 F Pulse Rate 105 H 83 93 H Respiratory Rate 18 16 18 Blood Pressure 132/99 H 106/63 108/68 Pulse Oximetry 100 100 100 MDM - Psych <RADHA Gan - Last Filed: 12/19/19 20:04> Lab Data Result diagrams: 12/19/19 14:24 12/19/19 14:24 Labs: Lab Results 12/19/19 12/19/19 12/19/19 Range/Units 14:15 14:15 14:24 WBC (4.5-11.0) X10^3/uL RBC (4.0-5.2) X10^6/uL Hgb (12.0-16.0) g/dL Hct (36-46) % MCV (80-100) fL MCH (26-34) PG MCHC (30-36) % RDW (11.6-14.8) % Plt Count (150-400) X10^3/uL Neut % (Auto) (50-75) % Lymph % (Auto) (25-40) % [place] % (Auto) (3-14) % Eos % (Auto) (2-4) % Baso % (Auto) (0-2) % Neut # (Auto) (5050-3789) /uL Lymph # (Auto) (7550-2639) /uL [place] # (Auto) (0-900) /uL Eos # (Auto) (0-450) /uL Baso # (Auto) (0-100) /uL Sodium (137-145) mmol/L Potassium (3.4-5.1) mmol/L Chloride (98-107) mmol/L Carbon Dioxide (22-32) mmol/L BUN (7-17) mg/dL Creatinine (0.52-1.04) mg/dL Estimated GFR (>60) mL/min BUN/Creatinine Ratio (6-22) Glucose (70-100) mg/dL Calcium (8.4-10.2) mg/dL Total Bilirubin (0.2-1.3) mg/dL AST (14-36) IU/L ALT (<35) IU/L Alkaline Phosphatase (38-126) U/L Total Protein (6.3-8.2) g/dL Albumin (3.5-5.0) g/dL Globulin (1.7-4.1) g/dL Albumin/Globulin Ratio (1.0-2.8) TSH (0.47-4.68) uIU/mL Urine RBC None seen (0-5/HPF) Urine WBC 0-1/hpf (0-5/HPF) Ur Squamous Epith Cells 1-5 /hpf (0-5/HPF) Amorphous Sediment 1+ Urine Bacteria None seen (None) Ur Culture Indicated? Cult not indicated Salicylates < 1.0 (<20) mg/dL U Opiates 300ng/mL cut Negative (Negative) Ur Oxycodone Screen Negative (Negative) Urine Methadone Screen Negative (Negative) Acetaminophen < 10 L (10-30) ug/mL Ur Barbiturates Screen Negative (Negative) U Tricyclic Antidepress Negative (Negative) Ur Phencyclidine Scrn Negative (Negative) Ur Amphetamines Screen Positive H (Negative) U Methamphetamines Scrn Negative (Negative) Ur MDMA Scrn (Ecstasy) Negative (Negative) U Benzodiazepines Scrn Negative (Negative) Urine Cocaine Screen Negative (Negative) U Marijuana (THC) Screen Negative (Negative) Ethyl Alcohol ( - 10) mg/dL COVID-19 PCR (Negative) 12/19/19 12/19/19 12/19/19 Range/Units 14:24 14:24 14:24 WBC 7.2 (4.5-11.0) X10^3/uL RBC 4.27 (4.0-5.2) X10^6/uL Hgb 13.7 (12.0-16.0) g/dL Hct 40.1 (36-46) % MCV 94.0 (80-100) fL MCH 32.2 (26-34) PG MCHC 34.2 (30-36) % RDW 13.1 (11.6-14.8) % Plt Count 253 (150-400) X10^3/uL Neut % (Auto) 61.9 (50-75) % Lymph % (Auto) 27.5 (25-40) % [place] % (Auto) 6.5 (3-14) % Eos % (Auto) 3.5 (2-4) % Baso % (Auto) 0.6 (0-2) % Neut # (Auto) 4400 (1829-2807) /uL Lymph # (Auto) 2000 (7949-5430) /uL [place] # (Auto) 500 (0-900) /uL Eos # (Auto) 300 (0-450) /uL Baso # (Auto) 0 (0-100) /uL Sodium 137 (137-145) mmol/L Potassium 3.7 (3.4-5.1) mmol/L Chloride 104 (98-107) mmol/L Carbon Dioxide 27 (22-32) mmol/L BUN 11 (7-17) mg/dL Creatinine 0.61 (0.52-1.04) mg/dL Estimated GFR > 60.0 (>60) mL/min BUN/Creatinine Ratio 18.0 (6-22) Glucose 92 (70-100) mg/dL Calcium 9.3 (8.4-10.2) mg/dL Total Bilirubin 1.1 (0.2-1.3) mg/dL AST 35 (14-36) IU/L ALT 29 (<35) IU/L Alkaline Phosphatase 59 (38-126) U/L Total Protein 7.4 (6.3-8.2) g/dL Albumin 4.4 (3.5-5.0) g/dL Globulin 3.0 (1.7-4.1) g/dL Albumin/Globulin Ratio 1.5 (1.0-2.8) TSH 0.922 (0.47-4.68) uIU/mL Urine RBC (0-5/HPF) Urine WBC (0-5/HPF) Ur Squamous Epith Cells (0-5/HPF) Amorphous Sediment Urine Bacteria (None) Ur Culture Indicated? Salicylates (<20) mg/dL U Opiates 300ng/mL cut (Negative) Ur Oxycodone Screen (Negative) Urine Methadone Screen (Negative) Acetaminophen (10-30) ug/mL Ur Barbiturates Screen (Negative) U Tricyclic Antidepress (Negative) Ur Phencyclidine Scrn (Negative) Ur Amphetamines Screen (Negative) U Methamphetamines Scrn (Negative) Ur MDMA Scrn (Ecstasy) (Negative) U Benzodiazepines Scrn (Negative) Urine Cocaine Screen (Negative) U Marijuana (THC) Screen (Negative) Ethyl Alcohol < 10 ( - 10) mg/dL COVID-19 PCR (Negative) 12/19/19 Range/Units 17:52 WBC (4.5-11.0) X10^3/uL RBC (4.0-5.2) X10^6/uL Hgb (12.0-16.0) g/dL Hct (36-46) % MCV (80-100) fL MCH (26-34) PG MCHC (30-36) % RDW (11.6-14.8) % Plt Count (150-400) X10^3/uL Neut % (Auto) (50-75) % Lymph % (Auto) (25-40) % [place] % (Auto) (3-14) % Eos % (Auto) (2-4) % Baso % (Auto) (0-2) % Neut # (Auto) (1471-2912) /uL Lymph # (Auto) (5455-5276) /uL [place] # (Auto) (0-900) /uL Eos # (Auto) (0-450) /uL Baso # (Auto) (0-100) /uL Sodium (137-145) mmol/L Potassium (3.4-5.1) mmol/L Chloride (98-107) mmol/L Carbon Dioxide (22-32) mmol/L BUN (7-17) mg/dL Creatinine (0.52-1.04) mg/dL Estimated GFR (>60) mL/min BUN/Creatinine Ratio (6-22) Glucose (70-100) mg/dL Calcium (8.4-10.2) mg/dL Total Bilirubin (0.2-1.3) mg/dL AST (14-36) IU/L ALT (<35) IU/L Alkaline Phosphatase (38-126) U/L Total Protein (6.3-8.2) g/dL Albumin (3.5-5.0) g/dL Globulin (1.7-4.1) g/dL Albumin/Globulin Ratio (1.0-2.8) TSH (0.47-4.68) uIU/mL Urine RBC (0-5/HPF) Urine WBC (0-5/HPF) Ur Squamous Epith Cells (0-5/HPF) Amorphous Sediment Urine Bacteria (None) Ur Culture Indicated? Salicylates (<20) mg/dL U Opiates 300ng/mL cut (Negative) Ur Oxycodone Screen (Negative) Urine Methadone Screen (Negative) Acetaminophen (10-30) ug/mL Ur Barbiturates Screen (Negative) U Tricyclic Antidepress (Negative) Ur Phencyclidine Scrn (Negative) Ur Amphetamines Screen (Negative) U Methamphetamines Scrn (Negative) Ur MDMA Scrn (Ecstasy) (Negative) U Benzodiazepines Scrn (Negative) Urine Cocaine Screen (Negative) U Marijuana (THC) Screen (Negative) Ethyl Alcohol ( - 10) mg/dL COVID-19 PCR Negative (Negative) Point of Care Testing Test Results Negative Urine Dip Bedside Urine Glucose Negative Bedside Urine Bilirubin - Negative Bedside Urine Ketone - Negative Urine Specific [place] 1.010 Bedside Urine Occult Blood + Bedside Urine pH 6 Bedside Urine Protein - Negative Bedside Urine Urobilinogen +/- 1mg Bedside Urine Nitrite - Negative Bedside Urine Leukocytes - Negative Esterase MDM Narrative Medical decision making narrative: The patient is a 23-year-old female who presents with suicidal ideations and depression. She has seen and evaluated by Adam MURDOCK, it is willing to be placed inpatient for voluntary treatment. She was accepted as a voluntary patient at [facility]. Patient was given small dose of Ativan pre transfer for anxiety. She expresses great appreciation has been cooperative throughout her stay. <Nelida Barillas MD - Last Filed: 12/20/19 10:24> Lab Data Labs: Lab Results 12/19/19 12/19/19 12/19/19 Range/Units 14:15 14:15 14:24 WBC (4.5-11.0) X10^3/uL RBC (4.0-5.2) X10^6/uL Hgb (12.0-16.0) g/dL Hct (36-46) % MCV (80-100) fL MCH (26-34) PG MCHC (30-36) % RDW (11.6-14.8) % Plt Count (150-400) X10^3/uL Neut % (Auto) (50-75) % Lymph % (Auto) (25-40) % [place] % (Auto) (3-14) % Eos % (Auto) (2-4) % Baso % (Auto) (0-2) % Neut # (Auto) (1466-7174) /uL Lymph # (Auto) (4231-0185) /uL [place] # (Auto) (0-900) /uL Eos # (Auto) (0-450) /uL Baso # (Auto) (0-100) /uL Sodium (137-145) mmol/L Potassium (3.4-5.1) mmol/L Chloride (98-107) mmol/L Carbon Dioxide (22-32) mmol/L BUN (7-17) mg/dL Creatinine (0.52-1.04) mg/dL Estimated GFR (>60) mL/min BUN/Creatinine Ratio (6-22) Glucose (70-100) mg/dL Calcium (8.4-10.2) mg/dL Total Bilirubin (0.2-1.3) mg/dL AST (14-36) IU/L ALT (<35) IU/L Alkaline Phosphatase (38-126) U/L Total Protein (6.3-8.2) g/dL Albumin (3.5-5.0) g/dL Globulin (1.7-4.1) g/dL Albumin/Globulin Ratio (1.0-2.8) TSH (0.47-4.68) uIU/mL Urine RBC None seen (0-5/HPF) Urine WBC 0-1/hpf (0-5/HPF) Ur Squamous Epith Cells 1-5 /hpf (0-5/HPF) Amorphous Sediment 1+ Urine Bacteria None seen (None) Ur Culture Indicated? Cult not indicated Salicylates < 1.0 (<20) mg/dL U Opiates 300ng/mL cut Negative (Negative) Ur Oxycodone Screen Negative (Negative) Urine Methadone Screen Negative (Negative) Acetaminophen < 10 L (10-30) ug/mL Ur Barbiturates Screen Negative (Negative) U Tricyclic Antidepress Negative (Negative) Ur Phencyclidine Scrn Negative (Negative) Ur Amphetamines Screen Positive H (Negative) U Methamphetamines Scrn Negative (Negative) Ur MDMA Scrn (Ecstasy) Negative (Negative) U Benzodiazepines Scrn Negative (Negative) Urine Cocaine Screen Negative (Negative) U Marijuana (THC) Screen Negative (Negative) Ethyl Alcohol ( - 10) mg/dL COVID-19 PCR (Negative) 12/19/19 12/19/19 12/19/19 Range/Units 14:24 14:24 14:24 WBC 7.2 (4.5-11.0) X10^3/uL RBC 4.27 (4.0-5.2) X10^6/uL Hgb 13.7 (12.0-16.0) g/dL Hct 40.1 (36-46) % MCV 94.0 (80-100) fL MCH 32.2 (26-34) PG MCHC 34.2 (30-36) % RDW 13.1 (11.6-14.8) % Plt Count 253 (150-400) X10^3/uL Neut % (Auto) 61.9 (50-75) % Lymph % (Auto) 27.5 (25-40) % [place] % (Auto) 6.5 (3-14) % Eos % (Auto) 3.5 (2-4) % Baso % (Auto) 0.6 (0-2) % Neut # (Auto) 4400 (7770-3001) /uL Lymph # (Auto) 2000 (3859-0056) /uL [place] # (Auto) 500 (0-900) /uL Eos # (Auto) 300 (0-450) /uL Baso # (Auto) 0 (0-100) /uL Sodium 137 (137-145) mmol/L Potassium 3.7 (3.4-5.1) mmol/L Chloride 104 (98-107) mmol/L Carbon Dioxide 27 (22-32) mmol/L BUN 11 (7-17) mg/dL Creatinine 0.61 (0.52-1.04) mg/dL Estimated GFR > 60.0 (>60) mL/min BUN/Creatinine Ratio 18.0 (6-22) Glucose 92 (70-100) mg/dL Calcium 9.3 (8.4-10.2) mg/dL Total Bilirubin 1.1 (0.2-1.3) mg/dL AST 35 (14-36) IU/L ALT 29 (<35) IU/L Alkaline Phosphatase 59 (38-126) U/L Total Protein 7.4 (6.3-8.2) g/dL Albumin 4.4 (3.5-5.0) g/dL Globulin 3.0 (1.7-4.1) g/dL Albumin/Globulin Ratio 1.5 (1.0-2.8) TSH 0.922 (0.47-4.68) uIU/mL Urine RBC (0-5/HPF) Urine WBC (0-5/HPF) Ur Squamous Epith Cells (0-5/HPF) Amorphous Sediment Urine Bacteria (None) Ur Culture Indicated? Salicylates (<20) mg/dL U Opiates 300ng/mL cut (Negative) Ur Oxycodone Screen (Negative) Urine Methadone Screen (Negative) Acetaminophen (10-30) ug/mL Ur Barbiturates Screen (Negative) U Tricyclic Antidepress (Negative) Ur Phencyclidine Scrn (Negative) Ur Amphetamines Screen (Negative) U Methamphetamines Scrn (Negative) Ur MDMA Scrn (Ecstasy) (Negative) U Benzodiazepines Scrn (Negative) Urine Cocaine Screen (Negative) U Marijuana (THC) Screen (Negative) Ethyl Alcohol < 10 ( - 10) mg/dL COVID-19 PCR (Negative) 12/19/19 Range/Units 17:52 WBC (4.5-11.0) X10^3/uL RBC (4.0-5.2) X10^6/uL Hgb (12.0-16.0) g/dL Hct (36-46) % MCV (80-100) fL MCH (26-34) PG MCHC (30-36) % RDW (11.6-14.8) % Plt Count (150-400) X10^3/uL Neut % (Auto) (50-75) % Lymph % (Auto) (25-40) % [place] % (Auto) (3-14) % Eos % (Auto) (2-4) % Baso % (Auto) (0-2) % Neut # (Auto) (4681-9251) /uL Lymph # (Auto) (6409-7242) /uL [place] # (Auto) (0-900) /uL Eos # (Auto) (0-450) /uL Baso # (Auto) (0-100) /uL Sodium (137-145) mmol/L Potassium (3.4-5.1) mmol/L Chloride (98-107) mmol/L Carbon Dioxide (22-32) mmol/L BUN (7-17) mg/dL Creatinine (0.52-1.04) mg/dL Estimated GFR (>60) mL/min BUN/Creatinine Ratio (6-22) Glucose (70-100) mg/dL Calcium (8.4-10.2) mg/dL Total Bilirubin (0.2-1.3) mg/dL AST (14-36) IU/L ALT (<35) IU/L Alkaline Phosphatase (38-126) U/L Total Protein (6.3-8.2) g/dL Albumin (3.5-5.0) g/dL Globulin (1.7-4.1) g/dL Albumin/Globulin Ratio (1.0-2.8) TSH (0.47-4.68) uIU/mL Urine RBC (0-5/HPF) Urine WBC (0-5/HPF) Ur Squamous Epith Cells (0-5/HPF) Amorphous Sediment Urine Bacteria (None) Ur Culture Indicated? Salicylates (<20) mg/dL U Opiates 300ng/mL cut (Negative) Ur Oxycodone Screen (Negative) Urine Methadone Screen (Negative) Acetaminophen (10-30) ug/mL Ur Barbiturates Screen (Negative) U Tricyclic Antidepress (Negative) Ur Phencyclidine Scrn (Negative) Ur Amphetamines Screen (Negative) U Methamphetamines Scrn (Negative) Ur MDMA Scrn (Ecstasy) (Negative) U Benzodiazepines Scrn (Negative) Urine Cocaine Screen (Negative) U Marijuana (THC) Screen (Negative) Ethyl Alcohol ( - 10) mg/dL COVID-19 PCR Negative (Negative) Point of Care Testing Test Results Negative Urine Dip Bedside Urine Glucose Negative Bedside Urine Bilirubin - Negative Bedside Urine Ketone - Negative Urine Specific [place] 1.010 Bedside Urine Occult Blood + Bedside Urine pH 6 Bedside Urine Protein - Negative Bedside Urine Urobilinogen +/- 1mg Bedside Urine Nitrite - Negative Bedside Urine Leukocytes - Negative Esterase Discharge Plan Departure Patient Disposition: Xfer Psychiatric Hosp Clinical Impression: Suicidal ideation Discharge Date/Time: 12/19/19 18:49 <Nelida Barillas MD - Last Filed: 12/20/19 10:24> Cosign ED Attending Cosignature Attestation: I was immediately available in the department for consultation throughout this patient's visit. I agree with documentation as above. Nelida Barillas MD
--- NOTE | 2019-12-19 17:07 | PC.NURSE ---
Spoke with Adam with SW and the tentative plan is to voluntarily admit pt to [facility]. Await final acceptance.
--- NOTE | 2019-12-19 17:39 | CM.SWNOTE ---
[employer] note Following assessment, [employer] UP ME[employer]ACH[employer] begins seeking placement for patient. SET UP MECH[employer]AMP[employer]ACH[employer] calls [facility]: no open beds. [employer] calls [facility] and speaks to Celia. Due to technical challenges at [place], [employer] completes patient screening and reviews chart with Celia over phone. Celia calls [employer] back later and informs [employer] off acceptance. Details of acceptance below: Accepted to [facility]. Accepting provider: Dr. Perez. 1999 Check in. Nurse to Nurse: [phone]. Intake Contact: Celia. Address: [address] [place] [address], [address] floor, [place], [address]. Celia at [place] requests SW note, provider note, vitals, be sent down in paper form. [employer] [place] clinical packet [place] [facility] [place]. [employer] updates [facility] ANDREA [facility], and provider KELLIE Gan. [employer] updates patient. All parties indicate understanding and continued agreement with plan of care. Plan: Patient to transfer to [facility] in [place] to receive inpatient behavioral health treatment. MATHIEU Parham
[2019-12-19] MEDS: LORazepam 0.5 MG TABLET PO (17:42)
--- NOTE | 2019-12-19 17:51 | PC.NURSE ---
Report called to ANDREA Glez at [facility]
[2019-12-19 18:23] LABS: COVID19 -Nasal RAPID Negative (Negative)
[2019-12-19 18:36] VITALS: BP 108/68; PULSE 93; RESP 18; O2SAT 100
--- NOTE | 2019-12-19 18:42 | PC.NURSE ---
[facility] has arrived for Pt transport to [place] [facility]. Pt offered restroom before departure
--- NOTE | 2019-12-19 18:48 | PC.NURSE ---
Pt has left ED with [facility]. End Pt 1:1
--- NOTE | 2019-12-19 18:55 | PC.NURSE ---
agricultural service worker Adam was able to secure a inpatient bed with Amaris (intake) at [facility] for patients arrival [facility]. [facility] ambulance arrived at 1845. Dr. Perez accepted patient.
== END 2019-12-19 18:49 ==
PROVIDERS: Emergency Provider Nurse Practitioner Family; PCP Family Medicine
DX: R45.851 Suicidal ideations (principal); F32.9 Major depressive disorder, single episode, unspecified; Z11.59 Encounter for screening for other viral diseases
CPT/HCPCS: 36415; 80053; 80305; 80320; 80329; 81003; 81015; 81025; 84443; 85025; 87635; 99283; 99284; G0480

== ENCOUNTER 2020-01-31 13:05 | Emergency (ER) | payer OTHER, MEDICAID, SELFPAY ==
[2020-01-31] VITALS (13 sets, daily range): BP systolic 128–150; BP diastolic 82–102; PULSE 99–108; RESP 15–30; TEMP 37.1; O2SAT 97–100; BMI 22.3
--- NOTE | 2020-01-31 14:07 | ED_ITS ---
HPI - Back Pain/Injury <Syeda Benoit, COMMERCIAL [employer]OD INSTRUCTOR-BC - Last Filed: 01/31/20 19:00> General Chief Complaint: Back Pain/Injury Stated Complaint: Back Pain Time Seen by Provider: 01/31/20 13:45 Source: patient and EMS Mode of arrival: EMS Limitations: no limitations History of Present Illness HPI Narrative: the patient is a 24-year-old female nonsmoker with history of anxiety, depression, alcohol abuse who presents with a chief complaint of back pain between her shoulder blades. She was recently started on Eliquis after being diagnosed with bilateral pulmonary embolism at an outside facility a few days ago. Chart review illustrate that she was seen at [facility] on 01/28/2020. She states that since she has been discharge, she was taking her [place] twice a day as instructed. She was also given a small prescription of Ativan at that time. She states that whenever the pain medicine wears off she has such excruciating that she vomits. She states she is having a hard time eating and drinking because of her pain. She last took her pain medicine at 6:00 a.m. this morning, not had anything since For pain. The pain is between her shoulder, worse with movement or pressure. She denies any chest pain or shortness of breath. She denies any thoughts of hurting herself or anybody else. She states that she has recently quit drinking and has not had anything to drink. She states she is supposed to go to inpatient treatment, but was made not medically clear the other day, so she is having a hard time going there. She denies any thoughts of hurting herself or anybody else. Related Data Home Medications Medication Instructions Recorded Confirmed bupropion HCl 75 mg PO DAILY 11/19/19 11/19/19 dextroamphetamine-amphetamine 30 mg PO QAM 11/19/19 11/19/19 naltrexone 50 mg PO DAILY 11/19/19 11/19/19 naproxen 500 mg PO BID 11/19/19 11/19/19 Previous Rx's Medication Instructions Recorded hydroxyzine HCl 50 mg PO TID PRN #10 tab 11/19/19 cyclobenzaprine 10 mg PO TID PRN #14 tab 01/31/20 lidocaine 1 patch TOP DAILY PRN #15 each 01/31/20 ondansetron 4 mg PO Q6H PRN #14 tab 01/31/20 Allergies Allergy/AdvReac Type Severity Reaction Status Date / Time amoxicillin Allergy Unknown Verified 01/31/20 13:17 Penicillins Allergy Verified 01/31/20 13:17 Review of Systems <JAMES Gan - Last Filed: 01/31/20 19:00> Review of Systems Narrative: GENERAL: Denies chills, fatigue, malaise, fever, sweats. HEENT: Denies sinus pain, ear pain, sore throat, difficulty swallowing, dizziness. RESPIRATORY: see HPI CARDIOVASCULAR: Denies chest pain, palpitations, orthopnea, edema, GASTROINTESTINAL: Denies nausea, vomiting, abdominal pain, diarrhea, constipation, melena. : Denies dysuria, frequency, incontinence, hematuria, urinary retention. MUSCULOSKELETAL: See H PI SKIN: Denies rash, skin lesions, or other NEUROLOGIC: Denies weakness, headache, numbness, change in speech, confusion, seizures, incoordination. PSYCHIATRIC: No concerning psychosocial issues. 12 point review of systems is negative except for those stated above Patient History <JAMES Gan - Last Filed: 01/31/20 19:00> Social History Smoking Status: Never smoker Smoking Status: Never smoker alcohol intake frequency: 0-2 drinks per day Substance Use Type: does not use Exam <JAMES Gan - Last Filed: 01/31/20 19:00> Narrative Exam Narrative: GENERAL: This is a well-nourished, well-developed patient, appears teary HEAD: Atraumatic. Normocephalic. No temporal or scalp tenderness. EYES: Pupils equal round and reactive. Extraocular motions intact. No scleral icterus. No injection or drainage. ENT: Nose without bleeding, purulent drainage or septal hematoma. Throat without erythema, tonsillar hypertrophy or exudate. Uvula midline. Airway patent. NECK: Trachea midline. No JVD or lymphadenopathy. Supple, nontender, no meningeal signs. RESPIRATORY: Clear to auscultation. Breath sounds equal bilaterally. No wheezes, rales, or rhonchi. no cough. No increased respiratory effort. No accessory muscle use. GASTROINTESTINAL: Abdomen soft, non-tender, nondistended. No hepato- splenomegaly, or palpable masses. No guarding. Active bowel sounds all 4 quadrants. EXTREMITIES: No clubbing, cyanosis, or edema. No joint tenderness, effusion, or edema noted. BACK: Pain to thoracic paraspinal muscle palpation. No visual abnormality. No CT or L midline pain to palpation. NEURO: AOx3. SKIN: No rash or erythema On visible skin Initial Vital Signs Initial Vital Signs: Vital Signs Blood Pressure 130/98 H 01/31/20 13:10 <Lois Pinon DO - Last Filed: 02/01/20 08:16> Initial Vital Signs Initial Vital Signs: Vital Signs Blood Pressure 130/98 H 01/31/20 13:10 Scores <ANA Gan-BC - Last Filed: 01/31/20 19:00> GCS [place] coma scale eye opening: Spontaneous [place] coma scale verbal response: Orientated [place] coma scale motor response: Obey commands Hung coma scale total score: 15 Course <JAMES GanBC - Last Filed: 01/31/20 19:00> Orders Ordered: Discontinued Medications Hydrocodone Bitart/Acetaminophen ([place] 5/325) 1 tab PO NOW ONE Stop: 01/31/20 14:33 Last Admin: 01/31/20 14:37 Dose: 1 tab Documented by: GAMALIEL Hydrocodone Bitart/Acetaminophen ([place] 5/325) 1 tab PO NOW ONE Stop: 01/31/20 17:41 Last Admin: 01/31/20 17:49 Dose: 1 tab Documented by: GAMALIEL Cyclobenzaprine HCl (Flexeril) 10 mg PO NOW ONE Stop: 01/31/20 14:33 Last Admin: 01/31/20 14:37 Dose: 10 mg Documented by: MMINOR Sodium Chloride (Normal Saline 0.9%) 1,000 mls @ 1,000 mls/hr IV BOLUS ONE Stop: 01/31/20 15:04 Last Infusion: 01/31/20 15:50 Dose: 0 mls/hr Documented by: Admin: 01/31/20 14:14 Dose: 1,000 mls/hr Documented by: MMINOR Sodium Chloride (Normal Saline 0.9%) 1,000 mls @ 1,000 mls/hr IV BOLUS ONE Stop: 01/31/20 16:48 Last Infusion: 01/31/20 17:06 Dose: 0 mls/hr Documented by: Admin: 01/31/20 16:01 Dose: 1,000 mls/hr Documented by: GAMALIEL Lidocaine (Lidoderm) 1 each TOP NOW ONE Stop: 01/31/20 14:06 Last Admin: 01/31/20 14:15 Dose: 1 each Documented by: GAMALIEL Ondansetron HCl (Zofran) 4 mg IV NOW ONE Stop: 01/31/20 14:06 Last Admin: 01/31/20 14:15 Dose: 4 mg Documented by: GAMALIEL Vital Signs Vital signs: Vital Signs - 8 hr 01/31/20 13:10 01/31/20 13:11 01/31/20 13:30 Temperature 98.8 F Pulse Rate 105 H 100 H Respiratory Rate 15 29 H Blood Pressure 130/98 H 130/98 H 146/94 H Pulse Oximetry 99 98 01/31/20 14:00 01/31/20 14:30 01/31/20 15:00 Temperature Pulse Rate 108 H 100 H 99 H Respiratory Rate 30 H 25 H 25 H Blood Pressure 144/97 H 150/102 H 144/94 H Pulse Oximetry 100 100 100 01/31/20 15:30 01/31/20 16:00 01/31/20 16:01 Temperature Pulse Rate 99 H 101 H 101 H Respiratory Rate 29 H 25 H 29 H Blood Pressure 139/97 H 137/95 H Pulse Oximetry 100 98 99 01/31/20 16:30 01/31/20 17:00 01/31/20 17:30 Temperature Pulse Rate 101 H 99 H 102 H Respiratory Rate 25 H 24 24 Blood Pressure 140/92 H 128/82 131/83 Pulse Oximetry 100 97 98 01/31/20 18:17 Temperature Pulse Rate 100 H Respiratory Rate 18 Blood Pressure 138/93 H Pulse Oximetry 99 <Lois Pinon, DO - Last Filed: 02/01/20 08:16> Orders Ordered: Discontinued Medications Hydrocodone Bitart/Acetaminophen ([place] 5/325) 1 tab PO NOW ONE Stop: 01/31/20 14:33 Last Admin: 01/31/20 14:37 Dose: 1 tab Documented by: GAMALIEL Hydrocodone Bitart/Acetaminophen ([place] 5/325) 1 tab PO NOW ONE Stop: 01/31/20 17:41 Last Admin: 01/31/20 17:49 Dose: 1 tab Documented by: GAMALIEL Cyclobenzaprine HCl (Flexeril) 10 mg PO NOW ONE Stop: 01/31/20 14:33 Last Admin: 01/31/20 14:37 Dose: 10 mg Documented by: GAMALIEL Sodium Chloride (Normal Saline 0.9%) 1,000 mls @ 1,000 mls/hr IV BOLUS ONE Stop: 01/31/20 15:04 Last Infusion: 01/31/20 15:50 Dose: 0 mls/hr Documented by: Admin: 01/31/20 14:14 Dose: 1,000 mls/hr Documented by: GAMALIEL Sodium Chloride (Normal Saline 0.9%) 1,000 mls @ 1,000 mls/hr IV BOLUS ONE Stop: 01/31/20 16:48 Last Infusion: 01/31/20 17:06 Dose: 0 mls/hr Documented by: Admin: 01/31/20 16:01 Dose: 1,000 mls/hr Documented by: GAMALIEL Lidocaine (Lidoderm) 1 each TOP NOW ONE Stop: 01/31/20 14:06 Last Admin: 01/31/20 14:15 Dose: 1 each Documented by: GAMALIEL Ondansetron HCl (Zofran) 4 mg IV NOW ONE Stop: 01/31/20 14:06 Last Admin: 01/31/20 14:15 Dose: 4 mg Documented by: GAMALIEL Vital Signs Vital signs: Vital Signs - 8 hr 01/31/20 13:10 01/31/20 13:11 01/31/20 13:30 Temperature 98.8 F Pulse Rate 105 H 100 H Respiratory Rate 15 29 H Blood Pressure 130/98 H 130/98 H 146/94 H Pulse Oximetry 99 98 01/31/20 14:00 01/31/20 14:30 01/31/20 15:00 Temperature Pulse Rate 108 H 100 H 99 H Respiratory Rate 30 H 25 H 25 H Blood Pressure 144/97 H 150/102 H 144/94 H Pulse Oximetry 100 100 100 01/31/20 15:30 01/31/20 16:00 01/31/20 16:01 Temperature Pulse Rate 99 H 101 H 101 H Respiratory Rate 29 H 25 H 29 H Blood Pressure 139/97 H 137/95 H Pulse Oximetry 100 98 99 01/31/20 16:30 01/31/20 17:00 01/31/20 17:30 Temperature Pulse Rate 101 H 99 H 102 H Respiratory Rate 25 H 24 24 Blood Pressure 140/92 H 128/82 131/83 Pulse Oximetry 100 97 98 01/31/20 18:17 Temperature Pulse Rate 100 H Respiratory Rate 18 Blood Pressure 138/93 H Pulse Oximetry 99 MDM - Back Pain/Injury <Syeda Mccormackmer, COMMERCIAL FOOD INSTRUCTOR- - Last Filed: 01/31/20 19:00> Lab Data Attestation: I reviewed the patient's lab results. Result diagrams: 01/31/20 13:40 01/31/20 13:40 Labs: Lab Results 01/31/20 01/31/20 01/31/20 Range/Units 13:40 13:40 13:40 WBC 4.4 L (4.5-11.0) X10^3/uL RBC 4.28 (4.0-5.2) X10^6/uL Hgb 13.7 (12.0-16.0) g/dL Hct 39.3 (36-46) % MCV 92.0 (80-100) fL MCH 32.0 (26-34) PG MCHC 34.7 (30-36) % RDW 12.8 (11.6-14.8) % Plt Count 163 (150-400) X10^3/uL Neut % (Auto) 47.3 L (50-75) % Lymph % (Auto) 41.3 H (25-40) % Glynn % (Auto) 9.8 (3-14) % Eos % (Auto) 1.2 L (2-4) % Baso % (Auto) 0.4 (0-2) % Neut # (Auto) 2100 (5906-1957) /uL Lymph # (Auto) 1800 (8114-4409) /uL Glynn # (Auto) 400 (0-900) /uL Eos # (Auto) 100 (0-450) /uL Baso # (Auto) 0 (0-100) /uL PT 17.9 H (10.1-12.7) SECONDS INR 1.6 H (0.9-1.3) APTT 35 (26.4-36.2) SECONDS Sodium 135 L (137-145) mmol/L Potassium 3.9 (3.4-5.1) mmol/L Chloride 106 (98-107) mmol/L Carbon Dioxide 20 L (22-32) mmol/L BUN 8 (7-17) mg/dL Creatinine 0.44 L (0.52-1.04) mg/dL Estimated GFR > 60.0 (>60) mL/min BUN/Creatinine Ratio 18.2 (6-22) Glucose 68 L (70-100) mg/dL Calcium 8.8 (8.4-10.2) mg/dL Total Bilirubin 0.8 (0.2-1.3) mg/dL AST 32 (14-36) IU/L ALT 24 (<35) IU/L Alkaline Phosphatase 70 (38-126) U/L Total Creatine Kinase 57 (30-135) U/L CK-MB (CK-2) TNP CK-MB (CK-2) Rel Index TNP Troponin I < 0.012 (0.01-0.034) ng/mL NT-Pro-B Natriuret Pep 20 (<125) pg/mL Total Protein 7.3 (6.3-8.2) g/dL Albumin 4.0 (3.5-5.0) g/dL Globulin 3.3 (1.7-4.1) g/dL Albumin/Globulin Ratio 1.2 (1.0-2.8) Imaging Data Chest x-ray: Radiologist's Impression: [address] [place] [address] XRay Report Signed Patient: Rae Lobato EMR#: [id number] : 1995Acct:[id number] Age/Sex: 24 / FDate of Service: 01/31/20 Loc: ED Accession Number: [id number] Procedure: XR chest 1V Ordering Provider: Syeda Benoit- PROCEDURE: XR CHEST 1V INDICATIONS: sob TECHNIQUE: One view of the chest was acquired. COMPARISON: [facility], , XR CHEST 2V, 11/19/2019, 18:04. FINDINGS: Surgical changes and devices: None. Lungs and pleura: Lungs are clear. No pleural effusions or pneumothorax. Calcified granulomas in both lung alfonso are noted. Mediastinum: Mediastinal contours appear normal. Heart size is normal. Bones and chest wall: No suspicious bony lesions. Overlying soft tissues appear unremarkable. IMPRESSION: No acute cardiopulmonary abnormality. Dictated by: Lior Lewis M.D. on 01/31/2020 at 14:56 Approved by: Lior Lewis M.D. on 01/31/2020 at 14:57 ECG Data Attestation: I personally reviewed and interpreted this ECG as follows: Interpretation: Sinus tachycardia. Ventricular rate 101. P.r. interval 126. QRS 82. Viewed by Dr Pinon MDM Narrative Medical decision making narrative: the patient is a 24-year-old female who has been on Eliquis for 3 days for pulmonary embolism who presents with a chief com plaint of back pain. She does have a complicated history including depression and suicide ideation and is concerned about running out of her prescription pain medication at home. I am not willing to refill narcotic medications per departmental pulsing, though the patient was given lidocaine patch and Flexeril and felt much improved. She was able to keep down p.o. fluids and her medications. Overall lab work is grossly normal, no elevated BNP or troponin. Which is very reassuring. She is able to tolerate p.o., the repeatedly states that she cannot and I reassured her that she was able to keep down apple juice as well as all for oral medications. She does state that she feels improved after medications. I reiterated that we will not be able to take her pain completely away, The goal is to make it manageable. discussed this with patient and her boyfriend, who both state understanding. she repeatedly requested that I surgically remove her pulmonary embolisms, or find someone that can. I reiterated that this is not possible. Encouraged to follow up with primary care provider the next few days. I encouraged her to follow up with primary care provider and come back to the ER for any acute concerns. She has been hemodynamically stable, oxygenating well throughout her stay in the ER. <Lois Pinon, DO - Last Filed: 02/01/20 08:16> Lab Data Labs: Lab Results 01/31/20 01/31/20 01/31/20 Range/Units 13:40 13:40 13:40 WBC 4.4 L (4.5-11.0) X10^3/uL RBC 4.28 (4.0-5.2) X10^6/uL Hgb 13.7 (12.0-16.0) g/dL Hct 39.3 (36-46) % MCV 92.0 (80-100) fL MCH 32.0 (26-34) PG MCHC 34.7 (30-36) % RDW 12.8 (11.6-14.8) % Plt Count 163 (150-400) X10^3/uL Neut % (Auto) 47.3 L (50-75) % Lymph % (Auto) 41.3 H (25-40) % Glynn % (Auto) 9.8 (3-14) % Eos % (Auto) 1.2 L (2-4) % Baso % (Auto) 0.4 (0-2) % Neut # (Auto) 2100 (0000-4493) /uL Lymph # (Auto) 1800 (2241-6745) /uL Glynn # (Auto) 400 (0-900) /uL Eos # (Auto) 100 (0-450) /uL Baso # (Auto) 0 (0-100) /uL PT 17.9 H (10.1-12.7) SECONDS INR 1.6 H (0.9-1.3) APTT 35 (26.4-36.2) SECONDS Sodium 135 L (137-145) mmol/L Potassium 3.9 (3.4-5.1) mmol/L Chloride 106 (98-107) mmol/L Carbon Dioxide 20 L (22-32) mmol/L BUN 8 (7-17) mg/dL Creatinine 0.44 L (0.52-1.04) mg/dL Estimated GFR > 60.0 (>60) mL/min BUN/Creatinine Ratio 18.2 (6-22) Glucose 68 L (70-100) mg/dL Calcium 8.8 (8.4-10.2) mg/dL Total Bilirubin 0.8 (0.2-1.3) mg/dL AST 32 (14-36) IU/L ALT 24 (<35) IU/L Alkaline Phosphatase 70 (38-126) U/L Total Creatine Kinase 57 (30-135) U/L CK-MB (CK-2) TNP CK-MB (CK-2) Rel Index TNP Troponin I < 0.012 (0.01-0.034) ng/mL NT-Pro-B Natriuret Pep 20 (<125) pg/mL Total Protein 7.3 (6.3-8.2) g/dL Albumin 4.0 (3.5-5.0) g/dL Globulin 3.3 (1.7-4.1) g/dL Albumin/Globulin Ratio 1.2 (1.0-2.8) Discharge Plan Departure Patient Disposition: Home Clinical Impression: Back muscle spasm Back pain Qualifiers: Back pain location: thoracic back pain Chronicity: acute Back pain laterality: bilateral Qualified Code(s): M54.6 - Pain in thoracic spine Discharge Date/Time: 01/31/20 18:18 Instructions: DI for Back Spasm, DI for Back Strain or Sprain Activity Restrictions/Additional Instructions: thank you for trusting us with your care today. As discussed, your lab work came back very reassuring as Did your EKG and chest x-ray. I sent 3 prescriptions to [facility]. As discussed, the muscle relaxer can be sedating. Do not take and drive. Do not take it with any alcohol. This can be lethal. I also sent in ondansetron or Zofran for nausea. As well as lidocaine patches. The patches can be on for 12 hours then off for 12 hours. I suggest follow up with primary care provider in the next few days. Please rest and push fluids. Please focus on fluids, foods that are easy to swallow such as broths and soups. Please avoid sharp spicy foods deep fried fatty foods as these can all be irritating. as discussed, please come back to the emergency department for any acute concerns. Prescriptions: New cyclobenzaprine 10 mg tablet 10 mg PO TID PRN (Reason: muscle spasm) Qty: 14 RF: 0 lidocaine 5 % adhesive patch,medicated 1 patch TOP DAILY PRN (Reason: pain ) Qty: 15 RF: 0 ondansetron 4 mg tablet,disintegrating 4 mg PO Q6H PRN (Reason: nausea and vomiting) Qty: 14 RF: 0 No Action naltrexone 50 mg tablet 50 mg PO DAILY RF: 0 bupropion HCl 75 mg tablet 75 mg PO DAILY RF: 0 dextroamphetamine-amphetamine 30 mg capsule,extended release 24hr 30 mg PO QAM RF: 0 naproxen 500 mg tablet 500 mg PO BID RF: 0 hydroxyzine HCl 50 mg tablet 50 mg PO TID PRN (Reason: anxiety) Qty: 10 RF: 0 Referrals: Jessica Lozada MD [Primary Care Provider] - <Lois Pinon DO - Last Filed: 02/01/20 08:16> Cosign ED Attending Coslayaature Attestation: I was immediately available in the department for consultation. Documentation has been reviewed. I agree with assessment and plan.
[2020-01-31 14:12] LABS: Add Manual Diff / Slide Review NO; Basophils Absolute Auto 0 /uL (0-100); Basophils Percent Auto 0.4 % (0-2); Eosinophils Absolute Auto 100 /uL (0-450); Eosinophils Percent Auto 1.2 % (2-4); Hematocrit 39.3 % (36-46); Hemoglobin 13.7 g/dL (12.0-16.0); Lymphocytes Absolute Auto 1800 /uL (1100-4500); Lymphocytes Percent Auto 41.3 % (25-40); Mean Corpuscular HGB Conc 34.7 % (30-36); Monocytes Absolute Auto 400 /uL (0-900); Monocytes Percent Auto 9.8 % (3-14); Neutrophils Absolute Auto 2100 /uL (1500-7000); Neutrophils Percent Auto 47.3 % (50-75); Platelet Count 163 X10^3/uL (150-400); Red Blood Cell Count 4.28 X10^6/uL (4.0-5.2); Red Cell Distribution Width 12.8 % (11.6-14.8); White Blood Cell Count 4.4 X10^3/uL (4.5-11.0)
[2020-01-31 14:14] LABS: INR 1.6 (0.9-1.3); Prothrombin Time 17.9 SECONDS (10.1-12.7)
[2020-01-31] MEDS: SODIUM CHLORIDE 0.9% 1,000 ML 1000 ML IV ×2 (14:14→16:01)
[2020-01-31] MEDS: LIDOCAINE PATCH 1 EACH ADH..PATCH TOP (14:15)
[2020-01-31] MEDS: ONDANSETRON 4 MG/2 ML INJ IV (14:15)
[2020-01-31 14:17] LABS: PTT Partial Thromboplastin Tim 35 SECONDS (26.4-36.2)
--- NOTE | 2020-01-31 14:33 | DI.RAD.S_ITS ---
PROCEDURE: XR CHEST 1V INDICATIONS: sob TECHNIQUE: One view of the chest was acquired. COMPARISON: [facility], [place], XR CHEST 2V, 11/19/2019, 18:04. FINDINGS: Surgical changes and devices: None. Lungs and pleura: Lungs are clear. No pleural effusions or pneumothorax. Calcified granulomas in both lung alfonso are noted. Mediastinum: Mediastinal contours appear normal. Heart size is normal. Bones and chest wall: No suspicious bony lesions. Overlying soft tissues appear unremarkable. IMPRESSION: No acute cardiopulmonary abnormality. Dictated by: Lior Lewis M.D. on 01/31/2020 at 14:56 Approved by: Lior Lewis M.D. on 01/31/2020 at 14:57
[2020-01-31 14:34] LABS: Alanine Aminotransferase 24 IU/L (<35); Albumin Globulin Ratio 1.2 (1.0-2.8); Alkaline Phosphatase 70 U/L (38-126); Aspartate Aminotransferase 32 IU/L (14-36); BUN Creatinine Ratio 18.2 (6-22); Bilirubin Total 0.8 mg/dL (0.2-1.3); Blood Urea Nitrogen 8 mg/dL (7-17); Calcium 8.8 mg/dL (8.4-10.2); Carbon Dioxide 20 mmol/L (22-32); Chloride 106 mmol/L (98-107); Creatine Kinase 57 U/L (30-135); Estimated Glomerular Filt Rate > 60.0 mL/min (>60); Globulin 3.3 g/dL (1.7-4.1); Glucose 68 mg/dL (70-100); HEMOLYSIS < 15 (0-50); Potassium 3.9 mmol/L (3.4-5.1); Sodium 135 mmol/L (137-145); Total Protein 7.3 g/dL (6.3-8.2)
[2020-01-31] MEDS: CYCLOBENZAPRINE 10 MG TABLET PO (14:37)
[2020-01-31] MEDS: HYDROCODONE/ACET 5/325 TABLET 1 TAB PO ×2 (14:37→17:49)
[2020-01-31 14:47] LABS: NT-proBNP (BNP-Adult 18+) 20 pg/mL (<125); Troponin I < 0.012 ng/mL (0.01-0.034)
== END 2020-01-31 18:18 | disposition home or self-care (01) ==
PROVIDERS: Emergency Provider Nurse Practitioner Family; PCP Family Medicine
DX: M62.830 Muscle spasm of back (principal); M54.6 Pain in thoracic spine; I26.99 Other pulmonary embolism without acute cor pulmonale; Z79.01 Long term (current) use of anticoagulants; R06.02 Shortness of breath; R00.0 Tachycardia, unspecified
CPT/HCPCS: 36415; 71045; 80053; 82550; 83880; 84484; 85025; 85610; 85730; 93005; 96361; 96374; 99284; J2405

== ENCOUNTER 2020-06-25 10:30 | Emergency (ER) | payer OTHER, MEDICAID, SELFPAY ==
[2020-06-25 10:35] VITALS: BP 128/82; PULSE 92; RESP 14; TEMP 37.2; O2SAT 100; BMI 23.0
[2020-06-25 10:52] LABS: RBC Urine None Seen (0-5/HPF)
[2020-06-25 11:01] LABS: Amorphous Sediment Urine 2+; Bacteria Urine Occasional (0-1); Culture Indicated Urine Cult Not Indicated; Squamous Epithelial Cell Urine 5-10 /HPF (0-5/HPF); WBC Urine 0-1/HPF (0-5/HPF)
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
[2020-06-25] MEDS: cefTRIAXone 1,000 MG VIAL 500 MG IM (11:42)
[2020-06-25] MEDS: ONDANSETRON 4 MG ODT SL (11:43)
[2020-06-25] MEDS: AZITHROMYCIN 250 MG TABLET 1000 MG PO (11:43)
[2020-06-25 12:05] VITALS: BP 118/81; PULSE 92; RESP 15; TEMP 37.1; O2SAT 100
[2020-06-25 13:21] LABS: HIV 1 & 2 Ab/Ag 4th Gen Combo NEGATIVE (NEGATIVE)
[2020-06-25 14:58] LABS: Urine N gonorrhoeae NOT DETECTED
[2020-06-25 15:03] LABS: Urine Chlamydia NOT DETECTED
[2020-06-26 06:41] LABS: HBsAg Screen Negative (Negative); Hepatitis A Antibody IgM Negative (Negative); Hepatitis B Core Antibody IgM Negative (Negative); Hepatitis C Antibody <0.1 s/co ratio (0.0-0.9)
[2020-06-26 08:28] LABS: RPR Screen Non Reactive (Non Reactive)
== END 2020-06-25 12:10 | disposition home or self-care (01) ==
PROVIDERS: Emergency Provider Emergency Medicine; PCP Family Medicine
DX: T74.21XA Adult sexual abuse, confirmed, initial encounter (principal)
CPT/HCPCS: 36415; 80074; 81003; 81015; 81025; 86592; 87389; 87491; 87591; 96372; 99284; J0696